=== PATIENT | female | born 1960 | race Hispanic/Latino ===

== ENCOUNTER 2021-07-09 12:44 | Emergency (ER) | payer OTHER ==
[~2021-07-09] VITALS: Ht 157.5 cm; Wt 84.4 kg
[2021-07-09] MEDS ORDERED: KETOROLAC 60 MG VIAL (30MG/ML) IM ONE (14:30)
[2021-07-09] MEDS ORDERED: IBUP-1552 PO (17:36)
[2021-07-09] MEDS ORDERED: CYCL10TA16 PO (17:36)
[2021-07-09 17:53] VITALS: BP 142/72
== END 2021-07-09 18:08 | disposition home or self-care (01) ==
LOC: EDH 12:44
DX: S13.4XXA Sprain of ligaments of cervical spine, initial encounter (principal); S20.219A Contusion of unspecified front wall of thorax, initial encounter; M47.812 Spondylosis without myelopathy or radiculopathy, cervical region; Z79.1 Long term (current) use of non-steroidal anti-inflammatories (NSAID); Z90.49 Acquired absence of other specified parts of digestive tract; V49.49XA Driver injured in collision with other motor vehicles in traffic accident, initial encounter; Y93.89 Activity, other specified; Y92.89 Other specified places as the place of occurrence of the external cause; Y99.8 Other external cause status
CPT/HCPCS: 71045; 72040; 84484; 96372; 99284; J1885